=== PATIENT | male | born 1955 | race Caucasian/White ===

== ENCOUNTER → 2016-11-09 | Outpatient (REF) | payer OTHER ==
[~2016-11-09] MED LIST: CELE10TA PO; CITA20TA2 PO; LANS15CA PO; LEVO500T PO; PREV15CA PO; TYLE325T5 PO; VENTAER IN; ZOFR4TAB3 PO
[2016-11-09 13:08] LABS: ALBUMIN/GLOBULIN RATIO 1.33 (1.00-1.93); ALKALINE PHOSPHATASE 97 U/L (45-117); ALT/SGPT 61 U/L (12-78); ANION GAP 4 MEQ/L (8-16); AST/SGOT 30 U/L (15-37); BILIRUBIN,TOTAL 0.6 MG/DL (0.2-1.0); BLOOD UREA NITROGEN 22 MG/DL (7-18); CARBON DIOXIDE LEVEL 33 MEQ/L (21-32); CHLORIDE LEVEL 103 MEQ/L (98-107); CHOLESTEROL LEVEL 237 MG/DL (<200); CREATININE FOR GFR 1.07 MG/DL (0.70-1.30); GLOMERULAR FILTRATION RATE > 60.0 (>49); GLUCOSE, FASTING 95 MG/DL (80-110); POTASSIUM SERUM 4.8 MEQ/L (3.5-5.1); SODIUM LEVEL 140 MEQ/L (136-145); TRIGLYCERIDES LEVEL 223 MG/DL (<150)
[2016-11-09 13:19] LABS: MEAN CORPUSCULAR HEMOGLOBIN 30.3 pg (27.0-33.0); MEAN CORPUSCULAR HGB CONC 33.2 g/dl (32.0-36.5); MEAN CORPUSCULAR VOLUME 91.1 fl (80.0-96.0); RED CELL DISTRIBUTION WIDTH 12.6 % (11.5-14.5); WHITE BLOOD COUNT 4.6 K/mm3 (4.0-10.0)
== END ==
LOC: M LABDRAW1 11:37
PROVIDERS: ATTEND Family Medicine
DX: Z00.00 Encounter for general adult medical examination without abnormal findings (principal); Z12.5 Encounter for screening for malignant neoplasm of prostate

== ENCOUNTER → 2017-02-26 | Outpatient (REF) | payer OTHER ==
[2017-02-26 12:22] LABS: ALBUMIN 3.9 GM/DL (3.2-5.2); ALKALINE PHOSPHATASE 114 U/L (45-117); ALT/SGPT 45 U/L (12-78); ANION GAP 6 MEQ/L (8-16); AST/SGOT 25 U/L (15-37); BILIRUBIN,TOTAL 0.6 MG/DL (0.2-1.0); BLOOD UREA NITROGEN 18 MG/DL (7-18); CALCIUM LEVEL 9.1 MG/DL (8.8-10.2); CARBON DIOXIDE LEVEL 30 MEQ/L (21-32); CHLORIDE LEVEL 106 MEQ/L (98-107); CHOLESTEROL LEVEL 132 MG/DL (<200); CREATININE FOR GFR 1.08 MG/DL (0.70-1.30); GLOMERULAR FILTRATION RATE > 60.0 (>49); GLUCOSE, FASTING 105 MG/DL (80-110); POTASSIUM SERUM 4.4 MEQ/L (3.5-5.1); SODIUM LEVEL 142 MEQ/L (136-145); TOTAL PROTEIN 6.9 GM/DL (6.4-8.2); TRIGLYCERIDES LEVEL 149 MG/DL (<150)
== END ==
LOC: M LABDRAW1 11:37
PROVIDERS: ATTEND Family Medicine
DX: E78.5 Hyperlipidemia, unspecified (principal)

== ENCOUNTER → 2017-12-10 | Outpatient (REF) | payer OTHER ==
[2017-12-10 12:36] LABS: BASO % 0.4 % (0.0-1.0); EOS # 0.1 10^3/uL (0.0-0.50); EOS % 1.2 % (0.0-3.0); HEMOGLOBIN 15.2 g/dl (13.5-17.5); IMMATURE GRANULOCYTE % 0.4 % (0-3.0); LYMPH # 1.5 10^3/uL (1.5-4.5); LYMPH % 29.2 % (24.0-44.0); MEAN CORPUSCULAR HEMOGLOBIN 30.6 pg (27.0-33.0); MEAN CORPUSCULAR HGB CONC 33.8 g/dl (32.0-36.5); MEAN CORPUSCULAR VOLUME 90.5 fl (80.0-96.0); MONO # 0.5 10^3/uL (0.0-0.8); NEUTROPHILS % 59.8 % (36.0-66.0); PLATELET COUNT, AUTOMATED 192 10^3/uL (150-450); RED BLOOD COUNT 4.97 10^6/uL (4.30-6.10); RED CELL DISTRIBUTION WIDTH 12.7 % (11.5-14.5)
[2017-12-10 13:16] LABS: ALBUMIN/GLOBULIN RATIO 1.29 (1.00-1.93); ALKALINE PHOSPHATASE 107 U/L (45-117); ALT/SGPT 44 U/L (12-78); ANION GAP 5 MEQ/L (8-16); AST/SGOT 23 U/L (7-37); BILIRUBIN,TOTAL 0.5 MG/DL (0.2-1.0); BLOOD UREA NITROGEN 20 MG/DL (7-18); CALCIUM LEVEL 8.8 MG/DL (8.8-10.2); CARBON DIOXIDE LEVEL 30 MEQ/L (21-32); CHLORIDE LEVEL 105 MEQ/L (98-107); CHOLESTEROL LEVEL 149 MG/DL (<200); CREATININE FOR GFR 1.03 MG/DL (0.70-1.30); GLOMERULAR FILTRATION RATE > 60.0 (>49); GLUCOSE, FASTING 87 MG/DL (70-100); HDL CHOLESTEROL 47 MG/DL (>40); LDL CHOLESTEROL 81.8 MG/DL (<100); NON-HDL-C 102 MG/DL; POTASSIUM SERUM 4.7 MEQ/L (3.5-5.1); PSA SCREENING 1.37 NG/ML (< 4.0); SODIUM LEVEL 140 MEQ/L (136-145); TOTAL PROTEIN 7.1 GM/DL (6.4-8.2); TRIGLYCERIDES LEVEL 101 MG/DL (<150)
== END ==
LOC: M LABDRAW1 10:55
DX: Z12.5 Encounter for screening for malignant neoplasm of prostate (principal); Z00.00 Encounter for general adult medical examination without abnormal findings

== ENCOUNTER → 2018-10-12 | Outpatient (CLI) | payer MEDICARE, OTHER ==
[~2018-10-12] MED LIST changes: +ONDA-228 PO; -ZOFR4TAB3 PO
[2018-10-12 14:19] LABS: BASO % 0.3 % (0.0-1.0); EOS % 0.3 % (0.0-3.0); HEMATOCRIT 46.5 % (42.0-52.0); HEMOGLOBIN 15.6 g/dl (13.5-17.5); LYMPH # 1.4 10^3/uL (1.5-4.5); LYMPH % 21.3 % (24.0-44.0); MEAN CORPUSCULAR HEMOGLOBIN 30.4 pg (27.0-33.0); MEAN CORPUSCULAR HGB CONC 33.5 g/dl (32.0-36.5); MEAN CORPUSCULAR VOLUME 90.5 fl (80.0-96.0); MONO # 0.6 10^3/uL (0.0-0.8); MONO % 9.5 % (0.0-5.0); NEUTROPHILS # 4.3 10^3/uL (1.8-7.7); NEUTROPHILS % 68.4 % (36.0-66.0); PLATELET COUNT, AUTOMATED 190 10^3/uL (150-450); RED BLOOD COUNT 5.14 10^6/uL (4.30-6.10); WHITE BLOOD COUNT 6.3 10^3/uL (4.0-10.0)
[2018-10-12 14:54] LABS: ALBUMIN 4.1 GM/DL (3.2-5.2); ALT/SGPT 35 U/L (12-78); BILIRUBIN,TOTAL 0.5 MG/DL (0.2-1.0); BLOOD UREA NITROGEN 16 MG/DL (7-18); CALCIUM LEVEL 8.7 MG/DL (8.8-10.2); CARBON DIOXIDE LEVEL 28 MEQ/L (21-32); CHLORIDE LEVEL 103 MEQ/L (98-107); CREATININE FOR GFR 1.18 MG/DL (0.70-1.30); GLOMERULAR FILTRATION RATE > 60.0 (>49); GLUCOSE, FASTING 101 MG/DL (70-100); POTASSIUM SERUM 4.3 MEQ/L (3.5-5.1); SODIUM LEVEL 139 MEQ/L (136-145); TOTAL PROTEIN 7.4 GM/DL (6.4-8.2)
[2018-10-14 10:59] LABS: TOTAL 25(OH) VITAMIN D 28.4 NG/ML (30.0-100.0)
== END ==
LOC: M LAB 13:25
PROVIDERS: ATTEND Physician Assistant Medical
DX: R53.83 Other fatigue (principal); I10 Essential (primary) hypertension; B34.9 Viral infection, unspecified

== ENCOUNTER → 2018-11-08 | Outpatient (REF) | payer MEDICARE, OTHER ==
[~2018-11-08] MED LIST changes: +ATOR1TAB21 PO; +CITA10TA5 PO; +LANS15CA23 PO
[2018-11-08 12:03] LABS: BASO % 0.2 % (0.0-1.0); EOS # 0.1 10^3/uL (0.0-0.50); EOS % 0.9 % (0.0-3.0); HEMATOCRIT 46.3 % (42.0-52.0); HEMOGLOBIN 15.5 g/dl (13.5-17.5); LYMPH # 1.4 10^3/uL (1.5-4.5); LYMPH % 25.4 % (24.0-44.0); MEAN CORPUSCULAR HEMOGLOBIN 30.5 pg (27.0-33.0); MEAN CORPUSCULAR HGB CONC 33.5 g/dl (32.0-36.5); MONO # 0.6 10^3/uL (0.0-0.8); MONO % 10.1 % (0.0-5.0); NEUTROPHILS # 3.4 10^3/uL (1.8-7.7); PLATELET COUNT, AUTOMATED 186 10^3/uL (150-450); RED BLOOD COUNT 5.09 10^6/uL (4.30-6.10); WHITE BLOOD COUNT 5.4 10^3/uL (4.0-10.0)
[2018-11-08 12:15] LABS: ALBUMIN 4.1 GM/DL (3.2-5.2); ALT/SGPT 41 U/L (12-78); BILIRUBIN,TOTAL 0.6 MG/DL (0.2-1.0); BLOOD UREA NITROGEN 20 MG/DL (7-18); CALCIUM LEVEL 8.7 MG/DL (8.8-10.2); CARBON DIOXIDE LEVEL 31 MEQ/L (21-32); CHLORIDE LEVEL 105 MEQ/L (98-107); CHOLESTEROL LEVEL 144 MG/DL (<200); CREATININE FOR GFR 1.12 MG/DL (0.70-1.30); GLOMERULAR FILTRATION RATE > 60.0 (>49); GLUCOSE, FASTING 97 MG/DL (70-100); HDL CHOLESTEROL 45 MG/DL (>40); LDL CHOLESTEROL 63 MG/DL (<100); NON-HDL-C 99 MG/DL; POTASSIUM SERUM 5.1 MEQ/L (3.5-5.1); PROSTATIC SPECIFIC AG MONITOR 1.33 NG/ML (< 4.00); SODIUM LEVEL 142 MEQ/L (136-145); TOTAL PROTEIN 7.4 GM/DL (6.4-8.2); TRIGLYCERIDES LEVEL 181 MG/DL (<150)
== END ==
LOC: M LABDRAW1 08:58
PROVIDERS: ATTEND Family Medicine
DX: Z00.00 Encounter for general adult medical examination without abnormal findings (principal); Z12.5 Encounter for screening for malignant neoplasm of prostate; Z13.818 Encounter for screening for other digestive system disorders; K21.9 Gastro-esophageal reflux disease without esophagitis; Z79.899 Other long term (current) drug therapy

== ENCOUNTER 2019-01-08 11:02 | Day surgery (SDC) | payer OTHER, MEDICARE ==
[~2019-01-08] VITALS: Ht 162.6 cm; Wt 64.4 kg
[~2019-01-08 11:02] MED LIST changes: +NS 1,000 ML IV ONE
[2019-01-08] MEDS ORDERED: LIDOCAINE 2% INJ 100 MG/5 ML SDV (FOR ANES.) As Ordered ONE ×2 (11:37→13:08)
[2019-01-08] MEDS ORDERED: PROPOFOL 200 MG/20 ML VIAL As Ordered ONE (13:08)
--- NOTE | 2019-01-08 13:11 | ROOR ---
Patient Name: Kelton Chisholm Procedure Date: 01/08/2019 12:47 PM Date of : 1955 Age: 63 Room: [facility] Gender: Male Note Status: Finalized Procedure: Total Colonoscopy to Cecum + Biopsy Polypectomy Indications: Screening for colorectal malignant neoplasm Providers: Constantin Duque MD Referring MD: Ramon Meza MD Requesting Provider: Medicines: Monitored Anesthesia Care Complications: No immediate complications. Procedure: Pre-Anesthesia Assessment: - The heart rate, respiratory rate, oxygen saturations, blood pressure, adequacy of pulmonary ventilation, and response to care were monitored throughout the procedure. The Colonoscope was introduced through the anus and advanced to the cecum, identified by appendiceal orifice and ileocecal valve. The colonoscopy was performed without difficulty. The patient tolerated the procedure well. The quality of the bowel preparation was good. Findings: The perianal and digital rectal examinations were normal. Non-bleeding internal hemorrhoids were found during retroflexion. The hemorrhoids were small and Grade I (internal hemorrhoids that do not prolapse). Scattered small-mouthed diverticula were found in the recto-sigmoid colon. A small polyp was found at 60 cm proximal to the anus. The polyp was sessile. The polyp was removed with a jumbo cold forceps. Resection and retrieval were complete. The exam was otherwise without abnormality on direct and retroflexion views. Impression: - Non-bleeding internal hemorrhoids. - Diverticulosis in the recto-sigmoid colon. - One small polyp at 60 cm proximal to the anus, removed with a jumbo cold forceps. Resected and retrieved. - The examination was otherwise normal on direct and retroflexion views. - The exam was otherwise normal to the cecum. Recommendation: - Patient has a contact number available for emergencies. The signs and symptoms of potential delayed complications were discussed with the patient. Return to normal activities tomorrow. Written discharge instructions were provided to the patient. - High fiber diet. - Discharge patient to home. - Continue present medications. - Await pathology results. - Telephone GI clinic for pathology results in 1 week. - Repeat colonoscopy in 10 years for surveillance based on pathology results. - Return to referring physician. - Check Portal Online for Path Results.([email or web address]) - The findings and recommendations were discussed with the patient's family. Constantin Duque MD Constantin Duque MD 01/08/2019 1:10:54 PM Electronically signed by Constantin Duque MD Number of Addenda: 0 Note Initiated On: 01/08/2019 12:47 PM Estimated Blood Loss: Estimated blood loss: none.
[2019-01-08 13:30] VITALS: BP 156/77
== END 2019-01-08 13:42 | disposition home or self-care (01) ==
LOC: M OPP 11:02
PROVIDERS: ATTEND Internal Medicine Gastroenterology
DX: D12.6 Benign neoplasm of colon, unspecified (principal); K64.0 First degree hemorrhoids; K57.30 Diverticulosis of large intestine without perforation or abscess without bleeding; Z12.11 Encounter for screening for malignant neoplasm of colon

== ENCOUNTER → 2019-03-28 | Outpatient (CLI) | payer MEDICARE, OTHER ==
[~2019-03-28] MED LIST changes: -NS 1,000 ML IV ONE
--- NOTE | 2019-03-28 09:46 | REP ---
MRI LEFT SHOULDER WITHOUT CONTRAST: HISTORY: Pain in the left shoulder. TECHNIQUE: Axial, oblique coronal, and oblique sagittal imaging planes are acquired. T1- and T2-weighted scans were obtained with and without fat saturation. MRI FINDINGS: The glenohumeral and acromioclavicular joints are normally aligned. There is subcortical cyst formation in the superolateral humeral head both medially and laterally. This is a finding which has been correlated with impingement. There is subacromial subdeltoid bursal effusion of moderate size. No significant glenohumeral effusion is seen. The AC joint is normally aligned. There is hypertrophy and subcortical cyst formation at the AC joint consistent with osteoarthritis. There is also some inferolateral spurring of the acromion process. There is advanced tendonitis tendinosis change diffusely in the supraspinatus tendon which is thickened and shows increased signal intensity. A small focus of distal tendon T2 signal intensity is seen at its insertion consistent with partial thickness tear. No labral disruption is appreciated. There is mild chondromalacia. The infraspinatus, subscapularis and biceps tendons appear to be intact. IMPRESSION: Advanced tendonitis tendinosis change in the supraspinatus tendon. AC joint osteoarthritis. Subacromial subdeltoid bursal effusion. Acromion process spurring. 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 Electronically Signed by Jerry Horne MD 03/28/2019 09:46 A
== END ==
LOC: M RAD 06:23
PROVIDERS: ATTEND Orthopaedic Surgery Sports Medicine
DX: M25.512 Pain in left shoulder (principal)

== ENCOUNTER → 2019-06-09 | Outpatient (CLI) | payer MEDICARE, OTHER ==
[~2019-06-09] MED LIST changes: +CITA20TA6 PO
[2019-06-09 10:05] LABS: HEMATOCRIT 45.7 % (42.0-52.0); HEMOGLOBIN 15.2 g/dl (13.5-17.5); MEAN CORPUSCULAR HEMOGLOBIN 31.1 pg (27.0-33.0); MEAN CORPUSCULAR HGB CONC 33.3 g/dl (32.0-36.5); MEAN CORPUSCULAR VOLUME 93.5 fl (80.0-96.0); PLATELET COUNT, AUTOMATED 185 10^3/uL (150-450); RED BLOOD COUNT 4.89 10^6/uL (4.30-6.10); WHITE BLOOD COUNT 4.9 10^3/uL (4.0-10.0)
[2019-06-09 10:17] LABS: INR 0.96; PROTHROMBIN TIME 12.5 SECONDS (11.8-14.0)
[2019-06-09 10:24] LABS: POTASSIUM SERUM 4.6 MEQ/L (3.5-5.1)
== END ==
LOC: M LAB 08:48
PROVIDERS: ATTEND Orthopaedic Surgery Sports Medicine
DX: Z01.818 Encounter for other preprocedural examination (principal); M75.102 Unspecified rotator cuff tear or rupture of left shoulder, not specified as traumatic; R12 Heartburn; F41.9 Anxiety disorder, unspecified; F32.9 Major depressive disorder, single episode, unspecified

== ENCOUNTER → 2019-06-09 | Outpatient (CLI) | payer MEDICARE, OTHER ==
--- NOTE | 2019-06-09 15:06 | ECGEPIP ---
[facility] Test Date: 2019-06-09 Pat Name: DALILA BORDEN Department: Room: - Gender: Male Laboratory Tech: DAMION : 1955 Requested By: VIPUL Galeas Order Number: [id number] Reading MD: Stevie Bowling Measurements Intervals [place] Rate: 60 P: 52 IA: 156 QRS: 44 QRSD: 89 T: 44 QT: 404 QTc: 406 Interpretive Statements SINUS RHYTHM Normal ECG No prior ECG available for comparison at the time of interpretation. Electronically Signed on 06-09-2019 15:06:26 EDT by Stevie Bowling
== END ==
LOC: M EKG 11:53
PROVIDERS: ATTEND Anesthesiology
DX: Z01.818 Encounter for other preprocedural examination (principal); R12 Heartburn; F41.9 Anxiety disorder, unspecified; F32.9 Major depressive disorder, single episode, unspecified

== ENCOUNTER 2019-06-12 06:34 | Day surgery (SDC) | payer MEDICARE, OTHER ==
[~2019-06-12] VITALS: Ht 162.6 cm; Wt 62.6 kg
[~2019-06-12 06:34] MED LIST changes: +LIDOCAINE 1% MDV 20ML VIAL SQ PRN; +LR 1,000 ML IV ONE; +ceFAZolin SOD 2 GM in IV 1 EA IV ONE
[2019-06-12] MEDS ORDERED: dexameTHASONE 10 MG/1 ML VIAL PRES.FREE (J1100) ONE (06:35)
[2019-06-12] MEDS ORDERED: ROPIvacaine 0.5% 30 ML INJECTION (J2795 PER 1MG) ONE (06:35)
[2019-06-12] MEDS ORDERED: LIDOCAINE 1% MDV 20ML VIAL ONE (06:35)
[2019-06-12] MEDS ORDERED: LIDOCAINE 1% MDV 20ML VIAL As Ordered ONE (07:53)
[2019-06-12] MEDS ORDERED: EPINEPHrine INJ 1 MG/ML 1ML AMP As Ordered ONE (07:53)
[2019-06-12] MEDS ORDERED: PROPOFOL 200 MG/20 ML VIAL As Ordered ONE ×2 (08:04→08:05)
[2019-06-12] MEDS ORDERED: LIDOCAINE 2% INJ 100 MG/5 ML SDV (FOR ANES.) As Ordered ONE (08:04)
[2019-06-12] MEDS ORDERED: ROCURONIUM BROMIDE 50 MG/5 ML VIAL As Ordered ONE (08:04)
[2019-06-12] MEDS ORDERED: dexameTHASONE 4 MG/ML 1ML VIAL (J1100) As Ordered ONE (08:05)
[2019-06-12] MEDS ORDERED: SUGAMMADEX SODIUM 500 MG/5 ML VIAL (BRIDION) As Ordered ONE (08:05)
[2019-06-12] MEDS ORDERED: MIDAZOLAM INJ 2 MG/2 ML VIAL (J2250) As Ordered ONE ×2 (08:05→08:10)
[2019-06-12] MEDS ORDERED: ONDANSETRON 4MG/2ML VIAL (J2405) As Ordered ONE (08:05)
[2019-06-12] MEDS ORDERED: fentaNYL 100 MCG/2 ML INJECTION (J3010) As Ordered ONE ×2 (08:05→08:10)
[2019-06-12] MEDS ORDERED: ePHEDrine SULFATE 25 MG/5 ML(5MG/ML) SYRINGE As Ordered ONE (09:05)
[2019-06-12] MEDS ORDERED: fentaNYL 100 MCG/2 ML INJECTION (J3010) IV ONE (09:15)
[2019-06-12] MEDS ORDERED: MIDAZOLAM INJ 2 MG/2 ML VIAL (J2250) IV ONE (09:15)
[2019-06-12] MEDS ORDERED: KETOROLAC 60 MG/2 ML VIAL (J1885) As Ordered ONE (09:44)
--- NOTE | 2019-06-12 10:15 | RO ---
DATE OF PROCEDURE: 06/12/2019 PREOPERATIVE DIAGNOSIS: Left shoulder impingement. POSTOPERATIVE DIAGNOSIS: Left shoulder impingement. PLANNED PROCEDURE: Left shoulder arthroscopy, subacromial decompression debridement, plus/minus rotator cuff repair. PROCEDURE PERFORMED: Left shoulder arthroscopy, subacromial decompression and debridement. SURGEON: Dr. Gaines EMBEDDED SYSTEMS ENGINEER: Dr. Maldonado TYPE OF ANESTHETIC: General anesthetic plus preoperative block. OPERATIVE PREAMBLE: This 63-year-old man his left shoulder pain refractory to non-surgical management. MRI demonstrated bursitis, possible anterior border supraspinatus tendon tear. We talked about pros, cons, risks, benefits going ahead with surgery in the office as well as preoperative holding. He wished to go ahead and I marked the left upper extremity. OPERATIVE REPORT: Patient brought to operating theater. He was placed supine on the beach chair positioner. All bony prominences were padded including using a leg gan and safety strap. Two grams IV Ancef was administered prior to insert the case. Spider arm positioner was used the patient's left side. A face mask was used and eyes were protected. General anesthesia was induced. Limb was prepped and draped the usual sterile fashion. Prep solution was allowed thoroughly dry prior to draping. Preoperative time-out was performed to confirm the site and the patient and the surgery. The patient was sat up 40 at approximately 45 degrees angle. Scope was introduced to the glenohumeral joint using standard percutaneous portal posterior approach. Glenohumeral joint was thoroughly examined. There is some moderate synovitis in the undersurface of the supraspinatus tendon but no obvious undersurface tears. Biceps appeated stable and in the groove with no evidence of synovitis or fraying. Labrum was stable. However, there was a moderate amount of superficial fraying to the labrum circumferentially that was debrided. Anterior portal was placed just posterior and superior to the biceps through the rotator interval and an in to out percutaneous technique using a spinal needle localization. Shaver and ablator was used intra-articularly. Cartilage on the humerus and glenoid only showed grade 1 soft. Rotator interval was slightly debrided. Upper border subscapularis tendon appeared normal in attachment with good excursion and normal lever push. Arthroscopy pictures were taken throughout. Scope was withdrawn from the intra-articular portion shoulder and placed into the subacromial space. Lateral portal was then created using again spinal needle localization. Combination of shaver and ablator was then used to removed from moderate to large amount of inflamed subacromial bursa. Rotator cuff was thoroughly inspected from the superior surface. There is no obvious tears upon probing and the scope was positioned from posteriorly as well as from laterally. Full and complete bursectomy was performed as well as CA ligament taken down. Buried instrument was used to resect with approximately 5-6 mm from the leading anterolateral edge of the inferior portion of the acromion. There is moderate sized spur. This was taken down to flat appearance on both lateral and posterior viewing portals. Any bone dust was then thoroughly debrided from inside the shoulder. Scope was withdrawn. Portal sites thoroughly washed and closed with interrupted 3-0 Monocryl in subcutaneous fashion. Steri-Strips were applied. Adaptic 4 x 8 gauze, ABD dressing was then placed with cloth tape. The patients arm was placed into a sling. The patient woke up for their general anesthetic, transferred off the operating table taken postanesthetic care unit stable condition. All sponge, needle, syringe counts were correct. No complications. Estimated blood loss 30 mL. PLAN: The patient will be discharged home according to day surgery criteria. They can wean out of the sling over the next 1-2 weeks. I have encouraged him to do pendulum exercises as well as hand, wrist and elbow exercises. The can move the shoulder around and start physical therapy. Follow up in the office in 2 weeks time.
[2019-06-12] MEDS ORDERED: ONDANSETRON 4 MG TAB (S0181) PO PRN (10:30)
[2019-06-12] MEDS ORDERED: LR 1,000 ML IV SCH ×2 (10:30)
[2019-06-12] MEDS ORDERED: HYDROMORPHONE HCL 0.5 MG/ 0.5 ML SYRINGE (J1170 PER 1) IV PRN (10:30)
[2019-06-12] MEDS ORDERED: ONDANSETRON 4MG/2ML VIAL (J2405) IV PRN ×2 (10:30)
[2019-06-12] MEDS ORDERED: fentaNYL 100 MCG/2 ML INJECTION (J3010) IV PRN (10:30)
[2019-06-12] MEDS ORDERED: PERCOCET 5MG/325MG TAB PO PRN ×2 (10:30)
[2019-06-12] MEDS ORDERED: ACETAMINOPHEN TAB 650MG DOSE (2X325MG) PO PRN (10:30)
[2019-06-12] MEDS ORDERED: MORPHINE 4 MG/ML 1ML VIAL/SYRINGE (J2270) IV PRN (10:30)
[2019-06-12 11:25] VITALS: BP 153/75
== END 2019-06-12 11:40 | disposition home or self-care (01) ==
LOC: M SDC 06:34
PROVIDERS: ATTEND Orthopaedic Surgery Sports Medicine
DX: M25.812 Other specified joint disorders, left shoulder (principal); E78.00 Pure hypercholesterolemia, unspecified; K21.9 Gastro-esophageal reflux disease without esophagitis; F41.9 Anxiety disorder, unspecified; F32.9 Major depressive disorder, single episode, unspecified; R51 Headache; Z88.0 Allergy status to penicillin; Z79.899 Other long term (current) drug therapy
CPT/HCPCS: 29823; 29826; 64415; J0690; J1100; J1885; J2250; J2405; J2795; J3010

== ENCOUNTER → 2019-09-20 | Outpatient (CLI) | payer MEDICARE, OTHER ==
[~2019-09-20] MED LIST changes: -LIDOCAINE 1% MDV 20ML VIAL SQ PRN; -LR 1,000 ML IV ONE; -ceFAZolin SOD 2 GM in IV 1 EA IV ONE
--- NOTE | 2019-09-21 09:57 | REPVR ---
PROCEDURE INFORMATION: Exam: MR Lumbar Spine Without Contrast. Exam date and time: 09/20/2019 9:53 AM Age: 64 years old Clinical indication: Low back pain and other: PT states pinched nerve 1mo ago. ; Additional info: Intervertebral disc degeneration TECHNIQUE: Imaging protocol: Multiplanar magnetic resonance images of the lumbar spine without intravenous contrast. COMPARISON: No relevant prior studies available. FINDINGS: Vertebrae: The lumbar vertebral bodies are normal in height , signal intensity and alignment.No acute fracture or dislocation is seen. Small Schmorl's node is seen along the superior endplate of L1 vertebral body. Small marginal anterior osteophytes with mild degenerative endplate changes are noted from L2-S1 levels. Marrow: There is a normal proportion of hematopoietic bone marrow and fat for this patient's age.There is no evidence of abnormal bone marrow signal intensity to suggest contusion or infection. Spinal epidural space: There is no evidence of epidural hemorrhage. Spinal cord: The conus medullaris is normal. L1-L2: There is no significant degenerative disc herniation.The spinal canal and neural foramina are patent and without significant stenosis.There is a mild diffuse posterior bulge causing mild effacement of the thecal sac.There is no significant spinal canal or foraminal stenosis. L2-L3: There is a mild diffuse posterior bulge causing mild effacement of the thecal sac.There is no significant spinal canal or foraminal stenosis. L3-L4: There is a mild diffuse posterior bulge causing mild effacement of the thecal sac.There is no significant spinal canal or foraminal stenosis. L4-L5: Small diffuse posterior herniation, asymmetric towards the right. Mild left and moderate right facet arthropathy.There is thickening of the ligamentum flavum.There is no evidence of spinal canal narrowing.There is mild left foraminal stenosis.There is moderate right lateral recess and foraminal stenosis with compression and posterior displacement of the right L5 nerve root. L5-S1: Small diffuse posterior herniation.The facet joints demonstrate marked degenerative narrowing and sclerosis.There is abnormal soft tissue density in the spinal canal at L5-S1 level on the right side measuring approximately 1.8 x 1.4 x 1.0 cm in dimensions which appears hypointense on both T1 and T2 weighted images and is seen causing severe secondary spinal canal stenosis with compression and displacement of the thecal sac posteriorly and to the left. This may represent an extruded disc fragment versus intraspinal neoplasm such as meningioma. A contrast-enhanced MRI of the lumbar spine with high-resolution imaging at L5-S1 level is recommended for further evaluation. There is compression on the thecal sac and crowding of the cauda equina nerve roots at this level. There is severe right lateral recess and foraminal stenosis with compression of the exiting right L5 nerve root. Soft tissues: The prevertebral soft tissues appear normal. IMPRESSION: MRI of the lumbar spine reveals multilevel degenerative spondylitic changes and degenerative disc disease as described above. There is abnormal soft tissue density in the spinal canal at L5-S1 level on the right side measuring approximately 1.8 x 1.4 x 1.0 cm in dimensions which appears hypointense on both T1 and T2 weighted images and is seen causing severe secondary spinal canal stenosis with compression and displacement of the thecal sac posteriorly and to the left. This may represent an extruded disc fragment versus intraspinal neoplasm such as meningioma. A contrast-enhanced MRI of the lumbar spine with high-resolution imaging at L5-S1 level is recommended for further evaluation. There is compression on the thecal sac and crowding of the cauda equina nerve roots at this level. There is severe right lateral recess and foraminal stenosis with compression of the exiting right L5 nerve root. Electronically signed by: Saurabh Motta On 09/21/2019 09:57:39 AM
== END ==
LOC: M RAD 09:01
PROVIDERS: ATTEND Physician Assistant
DX: M51.36 Other intervertebral disc degeneration, lumbar region (principal)

== ENCOUNTER → 2019-10-07 | Outpatient (CLI) | payer MEDICARE, OTHER ==
[~2019-10-07] MED LIST changes: +PERC5TAB12 PO
== END ==
LOC: M LAB 08:11
PROVIDERS: ATTEND Orthopaedic Surgery
DX: Z01.818 Encounter for other preprocedural examination (principal)

== ENCOUNTER 2019-10-08 13:32 | Day surgery (SDC) | payer MEDICARE, OTHER ==
[~2019-10-08] VITALS: Ht 162.6 cm; Wt 64.0 kg
[~2019-10-08 13:32] MED LIST changes: +CelecoXIB (CeleBREX) 100 MG CAP PO ONE; +GABAPENTIN 300 MG CAP PO ONE; +LIDOCAINE 1% MDV 20ML VIAL SQ PRN; +LR 1,000 ML IV ONE; -PERC5TAB12 PO; +PERCOCET 5MG/325MG TAB PO ONE; +ceFAZolin SOD 1 GM in D5W MINI-BAG PLUS 50 ML IV ONE
[2019-10-08] MEDS ORDERED: THROMBIN SOLN 20,000 UNITS KIT As Ordered ONE (14:59)
[2019-10-08] MEDS ORDERED: BUPIVACAINE/EPIN 0.25% 30 ML VIAL As Ordered ONE (14:59)
[2019-10-08] MEDS ORDERED: BACITRACIN PWD 50,000 UNITS VIAL As Ordered ONE (14:59)
[2019-10-08] MEDS ORDERED: ROCURONIUM BROMIDE 50 MG/5 ML VIAL As Ordered ONE ×2 (16:24→18:07)
[2019-10-08] MEDS ORDERED: ONDANSETRON 4MG/2ML VIAL (J2405) As Ordered ONE ×3 (16:24→19:47)
[2019-10-08] MEDS ORDERED: SUGAMMADEX SODIUM 500 MG/5 ML VIAL (BRIDION) As Ordered ONE (16:24)
[2019-10-08] MEDS ORDERED: dexameTHASONE 4 MG/ML 1ML VIAL (J1100) As Ordered ONE ×2 (16:24→16:31)
[2019-10-08] MEDS ORDERED: MIDAZOLAM INJ 2 MG/2 ML VIAL (J2250) As Ordered ONE (16:24)
[2019-10-08] MEDS ORDERED: propofoL 200 MG/20 ML VIAL As Ordered ONE (16:24)
[2019-10-08] MEDS ORDERED: METOCLOPRAMIDE INJ 10MG/2ML VIAL (J2765) As Ordered ONE (16:24)
[2019-10-08] MEDS ORDERED: LIDOCAINE 2% INJ 100 MG/5 ML SDV (FOR ANES.) As Ordered ONE (16:24)
[2019-10-08] MEDS ORDERED: fentaNYL 250 MCG/5 ML INJECTION (J3010) As Ordered ONE (16:24)
[2019-10-08] MEDS ORDERED: LACRILUBE (AKWA TEARS) OPHTH OINT 3.5 GM As Ordered ONE (17:17)
[2019-10-08] MEDS ORDERED: ePHEDrine SULFATE 25 MG/5 ML(5MG/ML) SYRINGE As Ordered ONE (18:03)
--- NOTE | 2019-10-08 18:35 | REP ---
I partial lumbar spine series: Single view. History: Intra exam. Findings: A single cross-table lateral portably obtained radiograph of the lumbar spine is presented time stamped 06:06 p.m. This demonstrates an intraoperative probe at the dorsal aspect of the spinal canal at the level of the L5-S1 disc. There is multilevel degenerative disc disease. Electronically Signed by Jerry Horne MD 10/08/2019 06:26 P
[2019-10-08] MEDS ORDERED: GLYCOPYRROLATE INJ 0.2 MG/ML 2 ML VIAL As Ordered ONE (18:42)
[2019-10-08] MEDS ORDERED: NEOSTIGMINE 10 MG/10 ML VIAL (J2710) As Ordered ONE (18:42)
[2019-10-08] MEDS ORDERED: fentaNYL 100 MCG/2 ML INJECTION (J3010) As Ordered ONE (19:47)
[2019-10-08] MEDS ORDERED: HYDROMORPHONE HCL 0.5 MG/ 0.5 ML SYRINGE (J1170 PER 1) IV PRN ×2 (20:15)
[2019-10-08] MEDS ORDERED: fentaNYL 100 MCG/2 ML INJECTION (J3010) IV PRN (20:15)
[2019-10-08] MEDS ORDERED: D5W/LR 1,000 ML IV SCH (20:15)
[2019-10-08] MEDS ORDERED: LR 1,000 ML IV SCH (20:15)
[2019-10-08] MEDS ORDERED: PERCOCET 5MG/325MG TAB PO PRN ×3 (20:15→21:15)
[2019-10-08] MEDS ORDERED: ONDANSETRON 4MG/2ML VIAL (J2405) IV PRN (20:15)
[2019-10-08] MEDS ORDERED: ceFAZolin SOD 1 GM in D5W MINI-BAG PLUS 50 ML IV SCH (20:30)
[2019-10-08] MEDS ORDERED: METAMUCIL (PSYLLIUM) PACKET PO ONE (20:30)
[2019-10-08] MEDS ORDERED: CYCLOBENZAPRINE 10 MG TAB PO PRN (21:00)
[2019-10-08] MEDS ORDERED: PROMETHAZINE INJ 25 MG/ML VIAL (J2550) IV PRN (21:15)
[2019-10-08 21:29] VITALS: BP 120/78
[2019-10-08] MEDS: GABAPENTIN 300 MG CAP PO SCH (21:55)
[2019-10-08 22:00] VITALS: BP 123/78
[2019-10-09] VITALS: BP 124/78
[2019-10-09] MEDS: ceFAZolin SOD 1 GM in D5W MINI-BAG PLUS 50 ML IV SCH ×2 (00:28→05:11)
[2019-10-09 01:00] VITALS: BP 108/68
[2019-10-09 02:00] VITALS: BP 106/67
[2019-10-09 06:00] VITALS: BP 104/65
[2019-10-09] MEDS ORDERED: PERC5TAB12 PO (06:16)
[2019-10-09] MEDS ORDERED: PANTOPRAZOLE 20 MG TAB PO SCH (09:00)
[2019-10-09] MEDS ORDERED: CelecoXIB (CeleBREX) 100 MG CAP PO ONE (09:00)
[2019-10-09] MEDS ORDERED: METAMUCIL (PSYLLIUM) PACKET PO ONE (09:00)
[2019-10-09] MEDS ORDERED: CitaloPRAM (CeleXA) 20 MG TAB PO SCH (09:00)
[2019-10-09] MEDS: GABAPENTIN 300 MG CAP PO SCH (09:30)
--- NOTE | 2019-10-10 10:45 | RO ---
DATE OF PROCEDURE: 10/08/2019 PREOPERATIVE DIAGNOSIS: Severe lumbar spinal stenosis secondary to very large disk extrusion at the L5-S1 level compressing both the cauda equina, as well as the right lateral recess and producing severe right lower extremity radicular complaints. POSTOPERATIVE DIAGNOSIS: Severe lumbar spinal stenosis secondary to very large disk extrusion at the L5-S1 level compressing both the cauda equina, as well as the right lateral recess and producing severe right lower extremity radicular complaints. PROCEDURE: Right L5 unilateral laminectomy with decompression of the central canal, thecal sac, exiting and traversing nerve roots and S1 right unilateral laminectomy for decompression of the traversing nerve root and exposure to allow for safe removal of the very large disk extrusion. SURGEON: Woodrow Baird MD DATA WAREHOUSE CONSULTANT: JOEY Suárez ANESTHESIA: General. ESTIMATED BLOOD LOSS: Less than 40. COMPLICATIONS: No complications. INDICATIONS: Intractable discomfort radiating down primarily the right lower extremity. The patient has had progressively worsening symptoms. The patient has an MRI that reflects a very large disk extrusion producing severe spinal stenosis and a right sided disk extrusion that produces central and right lateral recess spinal stenosis that again is severe. MRI interpreted by initial radiologist as possible neoplasm, reviewed with Dr. Horne, who agreed this has more of the appearance of a disk extrusion. CONSENT: Reviewed in detail with the patient, including a jonnathan discussion of the pathology involved, the procedure proposed, the rationale for the unilateral laminectomy as opposed to a microdiskectomy as the large size of this disk herniation, we need to be able to safely retract, and risks including not limited to pain, failure, infection, bleeding, blood loss, incomplete relief of symptoms, need for additional surgery, nerve injury, paralysis, and/or other problems. The patient agrees to proceed. DESCRIPTION OF PROCEDURE: The patient was identified in the holding area. Site and side verified. Brought to the operating room. Once anesthesia was administered, he was positioned in the prone position on the Sanjay frame. Axillary rolls were utilized, knees were slightly flexed. The Rae was to gravity. The patient did receive perioperative antibiotics. Once I and the chemical dependency attendant were comfortable with the patient's positioning, he was then sterilely prepped and draped in usual fashion for exposure. I stood on the patient's right side. The medical student stood on the patient's left side. Landmarks were palpated. Incision was outlined with a marking pen, infiltrated with 0.25% Marcaine with epinephrine, made with the 10 blade knife, developed down through skin and subcuticular tissues to the posterior lumbar fascia. Posterior lumbar fascia was reflected off of the spinous process of L5 and the dissection continued down the lamina of L5 exposing the L5 posterior lamina. A divot was then drilled in the posterior lamina at 5. A Rose-Karlo was placed the divot and a cross-table lateral was obtained to verify our level. Once this was accomplished, the incision was extended superiorly and the dissection continued further exposing the L5-S1 lamina. Retractors were then placed. The operating microscope was draped. I looked through oculars on the patient's right, medical student looked through oculars on the patient's left. Next, my loupe and headlamp were removed. Next, the operating microscope facilitated safe use the high-speed bur. I utilized the high-speed bur to implement a right unilateral laminectomy of the L5 level, extending medially, undercutting spinous process of L5, extending superiorly through the bare area of L5, protecting the facette complex, approximately 20% of the medial aspect of which was removed, extending inferiorly through the bare area of S1 and undercutting the spinous process of S1. Once this was accomplished, I was able to elevate the ligamentum flavum with curved curettes and remove ligamentum flavum using the #2 and 3 Kerrisons. This exposed the thecal sac, which was significantly elevated, likely due to the disk herniation. Next, lateral recess was also decompressed using #2 Kerrisons. Next, I utilized a Rose-Karlo to further dissect the traversing S1 nerve root, which was severely compressed and flattened. I was able to carefully and slowly sweep the nerve root medially and then was able to create a rupture in the posterior longitudinal ligament and used Godinez pituitaries and in piecemeal fashion removed the large disk herniation that extended into the axilla of S1, under the shoulder of S1 and centrally. After the initial disk material was removed, I continued to probe superior and in the lateral recesses and additional large disk fragments were removed. Next, I did open the annulus with 11 blade, additional disk material was removed using suction, as well as Godinez. Next, bipolar cautery was utilized for hemostasis, as well as thrombin Gelfoam. All thrombin Gelfoam was removed at the conclusion of case. Irrigation was accomplished, including irrigation with concentrated bacitracin. Retractors were removed and posterior lumbar fascia was reapproximated with interrupted stitch. Deep dermis was reapproximated with interrupted stitch. The Pernio dressing was applied to the wound. Next, the patient was then able to be log-rolled to the hospital bed, extubated, moved to recovery room in good condition, moving all four extremities and in fact expressing relief of his leg symptoms in the recovery room. For further details please refer to medical record.
== END 2019-10-09 10:45 | disposition home or self-care (01) ==
LOC: M SDC 13:32 → M MS5PR 21:18 → M SDC 10-09 10:45
PROVIDERS: ATTEND Orthopaedic Surgery
DX: M48.061 Spinal stenosis, lumbar region without neurogenic claudication (principal); K21.9 Gastro-esophageal reflux disease without esophagitis; F41.9 Anxiety disorder, unspecified; F32.9 Major depressive disorder, single episode, unspecified; Z79.899 Other long term (current) drug therapy
CPT/HCPCS: 63030; 72100; 88304; 96361; 96365; 96366; G0378; J0690; J1100; J2250; J2405; J2710; J2765; J3010

== ENCOUNTER → 2019-10-11 | Outpatient (CLI) | payer MEDICARE, OTHER ==
[~2019-10-11] MED LIST changes: -CelecoXIB (CeleBREX) 100 MG CAP PO ONE; -GABAPENTIN 300 MG CAP PO ONE; -LIDOCAINE 1% MDV 20ML VIAL SQ PRN; -LR 1,000 ML IV ONE; +PERC5TAB12 PO; -PERCOCET 5MG/325MG TAB PO ONE; -ceFAZolin SOD 1 GM in D5W MINI-BAG PLUS 50 ML IV ONE
[2019-10-11 11:35] LABS: BASO % 0.4 % (0.0-1.0); EOS # 0.1 10^3/uL (0.0-0.5); HEMATOCRIT 44.4 % (42.0-52.0); HEMOGLOBIN 14.6 g/dl (13.5-17.5); LYMPH # 1.6 10^3/uL (1.5-5.0); LYMPH % 19.9 % (24.0-44.0); MEAN CORPUSCULAR HGB CONC 32.9 g/dl (32.0-36.5); MEAN CORPUSCULAR VOLUME 91.2 fl (80.0-96.0); MONO # 0.8 10^3/uL (0.0-0.8); MONO % 9.7 % (0.0-5.0); NEUTROPHILS # 5.7 10^3/uL (1.5-8.5); NEUTROPHILS % 68.8 % (36.0-66.0); PLATELET COUNT, AUTOMATED 177 10^3/uL (150-450); RED BLOOD COUNT 4.87 10^6/uL (4.30-6.10); WHITE BLOOD COUNT 8.3 10^3/uL (4.0-10.0)
[2019-10-11 12:02] LABS: ERYTHROCYTE SEDIMENTATION RATE 23 mm/hr (0-20)
== END ==
LOC: M LAB 10:22
PROVIDERS: ATTEND Orthopaedic Surgery
DX: Z47.89 Encounter for other orthopedic aftercare (principal); Z79.899 Other long term (current) drug therapy

== ENCOUNTER → 2019-10-16 | Outpatient (REF) | payer MEDICARE, OTHER ==
[2019-10-16 10:52] LABS: BLOOD UREA NITROGEN 16 MG/DL (7-18); CREATININE FOR GFR 1.04 MG/DL (0.70-1.30); GLOMERULAR FILTRATION RATE > 60.0 (>49)
== END ==
LOC: M LABDRAW1 08:44
PROVIDERS: ATTEND Orthopaedic Surgery
DX: M54.5 Low back pain (principal)

== ENCOUNTER 2020-06-21 14:35 | Emergency (ER) | payer MEDICARE, OTHER ==
[~2020-06-21] VITALS: Ht 162.6 cm; Wt 63.6 kg
[2020-06-21 14:36] VITALS: BP 189/84
--- NOTE | 2020-06-21 15:05 | REP ---
INDICATION: PAIN, TRAUMA. COMPARISON: February 03, 2014.. TECHNIQUE: Helical scanning is acquired. 5 mm axial images were reformatted. Coronal MPR images were generated. FINDINGS: Bone window settings demonstrate an intact bony calvarium. There is no evidence of skull fracture or incidental bony calvarial lesion. The visualized paranasal sinuses appear clear. No intraorbital abnormality is seen. On soft tissue window setting images; the lateral, third, and fourth ventricles are normal in size and position. Kebede-white differentiation pattern is normal above and below the tentorium. There are is no evidence of intracranial hemorrhage. No mass, edema, infarction, or midline shift is seen. No extra-axial fluid collection is appreciated. There is minimal generalized volume loss. IMPRESSION: Negative noncontrast head CT. <Electronically signed by Dm Horne > 06/21/20 [id number]
[2020-06-21] MEDS ORDERED: BOOSTRIX/ADACEL VACCINE (DIPHTH/PERTUSS/ACELL/TETANUS) 0.5ML SYR IM ONE (15:30)
== END 2020-06-21 15:56 | disposition home or self-care (01) ==
LOC: M ED 14:35
DX: S07.9XXA Crushing injury of head, part unspecified, initial encounter (principal); Y92.9 Unspecified place or not applicable; Y93.9 Activity, unspecified; Y99.9 Unspecified external cause status; Z79.899 Other long term (current) drug therapy; Z88.1 Allergy status to other antibiotic agents

== ENCOUNTER → 2020-06-22 | Outpatient (CLI) | payer MEDICARE, OTHER ==
[2020-06-22 13:04] LABS: HEMATOCRIT 47.6 % (42.0-52.0); HEMOGLOBIN 15.6 g/dl (13.5-17.5); MEAN CORPUSCULAR HEMOGLOBIN 30.4 pg (27.0-33.0); MEAN CORPUSCULAR HGB CONC 32.8 g/dl (32.0-36.5); MEAN CORPUSCULAR VOLUME 92.8 fl (80.0-96.0); PLATELET COUNT, AUTOMATED 173 10^3/uL (150-450); RED BLOOD COUNT 5.13 10^6/uL (4.30-6.10); WHITE BLOOD COUNT 5.9 10^3/uL (4.0-10.0)
[2020-06-22 13:42] LABS: ALBUMIN 4.1 GM/DL (3.2-5.2); ALT/SGPT 36 U/L (12-78); BLOOD UREA NITROGEN 14 MG/DL (7-18); CALCIUM LEVEL 9.1 MG/DL (8.8-10.2); CARBON DIOXIDE LEVEL 30 MEQ/L (21-32); CHLORIDE LEVEL 104 MEQ/L (98-107); CHOLESTEROL LEVEL 147 MG/DL (<200); CHOLESTEROL RISK RATIO 2.826 (<5); CREATININE FOR GFR 1.12 MG/DL (0.70-1.30); GLOMERULAR FILTRATION RATE > 60.0 (>49); GLUCOSE, FASTING 95 MG/DL (70-100); HDL CHOLESTEROL 52 MG/DL (>40); LDL CHOLESTEROL 69 MG/DL (<100); NON-HDL-C 95 MG/DL; SODIUM LEVEL 140 MEQ/L (136-145); TOTAL PROTEIN 7.2 GM/DL (6.4-8.2); TRIGLYCERIDES LEVEL 131 MG/DL (<150)
[2020-06-22 13:53] LABS: TOTAL 25(OH) VITAMIN D 37.6 NG/ML (30.0-100.0)
== END ==
LOC: M WUC 09:42
PROVIDERS: ATTEND Family Medicine
DX: E55.9 Vitamin D deficiency, unspecified (principal); E78.5 Hyperlipidemia, unspecified; Z12.5 Encounter for screening for malignant neoplasm of prostate

== ENCOUNTER → 2021-06-22 | Outpatient (CLI) | payer MEDICARE, OTHER ==
[2021-06-22 10:40] LABS: HEMATOCRIT 42.6 % (42.0-52.0); HEMOGLOBIN 14.1 g/dl (13.5-17.5); MEAN CORPUSCULAR HEMOGLOBIN 30.4 pg (27.0-33.0); MEAN CORPUSCULAR HGB CONC 33.1 g/dl (32.0-36.5); MEAN CORPUSCULAR VOLUME 91.8 fl (80.0-96.0); PLATELET COUNT, AUTOMATED 171 10^3/uL (150-450); RED BLOOD COUNT 4.64 10^6/uL (4.30-6.10); WHITE BLOOD COUNT 3.9 10^3/uL (4.0-10.0)
[2021-06-22 11:21] LABS: BLOOD UREA NITROGEN 17 MG/DL (7-18); CALCIUM LEVEL 8.9 MG/DL (8.8-10.2); CARBON DIOXIDE LEVEL 31 MEQ/L (21-32); CHLORIDE LEVEL 104 MEQ/L (98-107); CREATININE FOR GFR 1.07 MG/DL (0.70-1.30); GLOMERULAR FILTRATION RATE > 60.0 (>49); GLUCOSE, FASTING 98 MG/DL (70-100); POTASSIUM SERUM 4.6 MEQ/L (3.5-5.1); SODIUM LEVEL 140 MEQ/L (136-145)
[2021-06-22 11:22] LABS: ALBUMIN 3.7 GM/DL (3.2-5.2); ALT/SGPT 34 U/L (12-78); BILIRUBIN,TOTAL 0.5 MG/DL (0.2-1.0); CHOLESTEROL LEVEL 147 MG/DL (<200); HDL CHOLESTEROL 44 MG/DL (>40); LDL CHOLESTEROL 82 MG/DL (<100); NON-HDL-C 103 MG/DL; TOTAL 25(OH) VITAMIN D 37.4 NG/ML (30.0-100.0); TOTAL PROTEIN 7.1 GM/DL (6.4-8.2); TRIGLYCERIDES LEVEL 107 MG/DL (<150)
== END ==
LOC: M WUC 08:41
PROVIDERS: ATTEND Family Medicine
DX: E55.9 Vitamin D deficiency, unspecified (principal); Z12.5 Encounter for screening for malignant neoplasm of prostate; E78.5 Hyperlipidemia, unspecified; Z79.899 Other long term (current) drug therapy
CPT/HCPCS: 36415; 80053; 80061; 82306; 85027; G0103

== ENCOUNTER → 2022-06-30 | Outpatient (CLI) | payer MEDICARE, OTHER ==
[~2022-06-30] MED LIST changes: -CITA10TA5 PO; +CITA10TA7 PO; +LANS-67 PO; -LANS15CA23 PO
[2022-06-30 12:24] LABS: BASO % 0.4 % (0.0-1.0); EOS % 0.7 % (0.0-3.0); HEMATOCRIT 47.4 % (42.0-52.0); HEMOGLOBIN 15.5 g/dl (13.5-17.5); LYMPH # 1.5 10^3/uL (1.5-5.0); LYMPH % 27.9 % (24.0-44.0); MEAN CORPUSCULAR HEMOGLOBIN 30.5 pg (27.0-33.0); MEAN CORPUSCULAR HGB CONC 32.7 g/dl (32.0-36.5); MEAN CORPUSCULAR VOLUME 93.3 fl (80.0-96.0); MONO # 0.5 10^3/uL (0.0-0.8); MONO % 9.5 % (2.0-8.0); NEUTROPHILS # 3.3 10^3/uL (1.5-8.5); NEUTROPHILS % 61.1 % (36.0-66.0); PLATELET COUNT, AUTOMATED 199 10^3/uL (150-450); RED BLOOD COUNT 5.08 10^6/uL (4.30-6.10); WHITE BLOOD COUNT 5.4 10^3/uL (4.0-10.0)
[2022-06-30 12:42] LABS: ALBUMIN 4.4 G/DL (3.2-5.2); ALT/SGPT 31 U/L (7.0-40); BILIRUBIN,TOTAL 0.9 MG/DL (0.3-1.2); BLOOD UREA NITROGEN 19 MG/DL (9-23); CALCIUM LEVEL 9.9 MG/DL (8.3-10.6); CARBON DIOXIDE LEVEL 32 MMOL/L (20-31); CHLORIDE LEVEL 102 MMOL/L (98-107); CHOLESTEROL LEVEL 156 MG/DL (<200); CHOLESTEROL RISK RATIO 3.23 (<5); CREATININE FOR GFR 1.08 MG/DL (0.70-1.30); GLOMERULAR FILTRATION RATE > 60.0 (>49); GLUCOSE, FASTING 96 MG/DL (74-106); HDL CHOLESTEROL 48.2 MG/DL (>40); LDL CHOLESTEROL 82.4 MG/DL (<100); NON-HDL-C 108 MG/DL; POTASSIUM SERUM 4.8 MMOL/L (3.5-5.1); PROSTATIC SPECIFIC AG MONITOR 1.19 NG/ML (< 4.00); SODIUM LEVEL 140 MMOL/L (136-145); TOTAL 25(OH) VITAMIN D 32.7 NG/ML (20.0-100.0); TOTAL PROTEIN 7.2 G/DL (5.7-8.2); TRIGLYCERIDES LEVEL 127 MG/DL (<150)
== END ==
LOC: M WUC 08:53
PROVIDERS: ATTEND Family Medicine
DX: E55.9 Vitamin D deficiency, unspecified (principal); Z12.5 Encounter for screening for malignant neoplasm of prostate; Z79.899 Other long term (current) drug therapy

== ENCOUNTER → 2023-06-26 | Outpatient (REF) | payer MEDICARE, OTHER ==
[2023-06-26 12:45] LABS: BASO % 0.4 % (0.0-1.0); EOS % 0.6 % (0.0-3.0); HEMATOCRIT 45.5 % (42.0-52.0); HEMOGLOBIN 15.1 g/dl (13.5-17.5); LYMPH # 1.3 10^3/uL (1.5-5.0); MEAN CORPUSCULAR HEMOGLOBIN 30.8 pg (27.0-33.0); MEAN CORPUSCULAR HGB CONC 33.2 g/dl (32.0-36.5); MEAN CORPUSCULAR VOLUME 92.9 fl (80.0-96.0); MONO # 0.4 10^3/uL (0.0-0.8); MONO % 8.6 % (2.0-8.0); NEUTROPHILS # 3.3 10^3/uL (1.5-8.5); NEUTROPHILS % 64.4 % (36.0-66.0); PLATELET COUNT, AUTOMATED 184 10^3/uL (150-450); WHITE BLOOD COUNT 5.1 10^3/uL (4.0-10.0)
[2023-06-26 13:01] LABS: ALBUMIN 3.9 G/DL (3.2-5.2); ALKALINE PHOSPHATASE 120 U/L (46-116); ALT/SGPT 33 U/L (7.0-40); AST/SGOT 18 U/L (<34); BILIRUBIN,TOTAL 0.7 MG/DL (0.3-1.2); BLOOD UREA NITROGEN 20 MG/DL (9-23); CALCIUM LEVEL 8.9 MG/DL (8.3-10.6); CARBON DIOXIDE LEVEL 31 MMOL/L (20-31); CHLORIDE LEVEL 104 MMOL/L (98-107); CHOLESTEROL LEVEL 161 MG/DL (<200); CHOLESTEROL RISK RATIO 3.17 (<5); CREATININE FOR GFR 1.02 MG/DL (0.70-1.30); GLOMERULAR FILTRATION RATE > 60.0 (>49); GLUCOSE, FASTING 106 MG/DL (74-106); HDL CHOLESTEROL 50.7 MG/DL (>40); LDL CHOLESTEROL 93.5 MG/DL (<100); NON-HDL-C 110.3 MG/DL; POTASSIUM SERUM 4.9 MMOL/L (3.5-5.1); SODIUM LEVEL 140 MMOL/L (136-145); TOTAL PROTEIN 6.9 G/DL (5.7-8.2); TRIGLYCERIDES LEVEL 84 MG/DL (<150)
[2023-06-26 13:04] LABS: TOTAL 25(OH) VITAMIN D 34.6 NG/ML (20.0-100.0)
== END ==
LOC: M LABWUC 12:11
PROVIDERS: ATTEND Family Medicine
DX: Z00.00 Encounter for general adult medical examination without abnormal findings (principal); E55.9 Vitamin D deficiency, unspecified; Z12.5 Encounter for screening for malignant neoplasm of prostate; Z79.899 Other long term (current) drug therapy
CPT/HCPCS: 36415; 80053; 80061; 82306; 85025; G0103

== ENCOUNTER 2023-10-18 11:09 | Day surgery (SDC) | payer MEDICARE, OTHER ==
[~2023-10-18] VITALS: Ht 162.6 cm; Wt 65.0 kg
[~2023-10-18 11:09] MED LIST changes: +GABA-1171 PO
[2023-10-18] MEDS: NS 1,000 ML IV ONE (11:33)
[2023-10-18] MEDS ORDERED: propofoL 200 MG/20 ML VIAL As Ordered ONE (12:23)
[2023-10-18] MEDS ORDERED: LIDOCAINE 2% MDV 20ML VIAL As Ordered ONE (12:23)
[2023-10-18] MEDS ORDERED: fentaNYL 100 MCG/2 ML INJECTION As Ordered ONE (12:26)
[2023-10-18 12:59] VITALS: TEMP 98.6
[2023-10-18 13:20] VITALS: BP 132/72; O2SAT 99
== END 2023-10-18 13:33 | disposition home or self-care (01) ==
LOC: M OPP 11:09
PROVIDERS: ATTEND Internal Medicine Gastroenterology
DX: Z12.11 Encounter for screening for malignant neoplasm of colon (principal); Z86.010 Personal history of colon polyps; K64.0 First degree hemorrhoids; K57.30 Diverticulosis of large intestine without perforation or abscess without bleeding; K31.89 Other diseases of stomach and duodenum; K22.89 Other specified disease of esophagus; R12 Heartburn; Z87.891 Personal history of nicotine dependence; Z79.02 Long term (current) use of antithrombotics/antiplatelets; Z79.891 Long term (current) use of opiate analgesic; Z88.0 Allergy status to penicillin
CPT/HCPCS: 43239; 88305; G0105; J3010

== ENCOUNTER → 2023-11-13 | Outpatient (CLI) | payer MEDICARE, OTHER ==
[2023-11-13 19:56] LABS: BASO % 0.3 % (0.0-1.0); EOS % 0.5 % (0.0-3.0); HEMATOCRIT 45.1 % (42.0-52.0); HEMOGLOBIN 15.2 g/dl (13.5-17.5); LYMPH # 1.9 10^3/uL (1.5-5.0); LYMPH % 30.5 % (24.0-44.0); MEAN CORPUSCULAR HEMOGLOBIN 30.8 pg (27.0-33.0); MEAN CORPUSCULAR HGB CONC 33.7 g/dl (32.0-36.5); MEAN CORPUSCULAR VOLUME 91.5 fl (80.0-96.0); MONO # 0.7 10^3/uL (0.0-0.8); NEUTROPHILS # 3.5 10^3/uL (1.5-8.5); NEUTROPHILS % 57.5 % (36.0-66.0); PLATELET COUNT, AUTOMATED 196 10^3/uL (150-450); RED BLOOD COUNT 4.93 10^6/uL (4.30-6.10); WHITE BLOOD COUNT 6.2 10^3/uL (4.0-10.0)
[2023-11-13 20:00] LABS: ERYTHROCYTE SEDIMENTATION RATE 14 mm/hr (0-20)
[2023-11-13 20:02] LABS: C REACTIVE PROTEIN QUANTITATIV < 0.40 MG/DL (<1.0)
[2023-11-13 20:04] LABS: ALBUMIN 4.1 G/DL (3.2-5.2); ALKALINE PHOSPHATASE 122 U/L (46-116); ALT/SGPT 38 U/L (7.0-40); AST/SGOT 19 U/L (<34); BILIRUBIN,TOTAL 0.7 MG/DL (0.3-1.2); BLOOD UREA NITROGEN 17 MG/DL (9-23); CALCIUM LEVEL 9.4 MG/DL (8.3-10.6); CARBON DIOXIDE LEVEL 31 MMOL/L (20-31); CHLORIDE LEVEL 103 MMOL/L (98-107); CREATININE FOR GFR 1.03 MG/DL (0.70-1.30); GLOMERULAR FILTRATION RATE > 60.0 (>42); GLUCOSE, FASTING 89 MG/DL (74-106); POTASSIUM SERUM 4.6 MMOL/L (3.5-5.1); SODIUM LEVEL 140 MMOL/L (136-145); TOTAL PROTEIN 7.1 G/DL (5.7-8.2)
[2023-11-13 20:06] LABS: THYROID STIMULATING HORMONE 5.763 uIU/ML (0.55-4.78)
== END ==
LOC: M WUC 15:12
PROVIDERS: ATTEND Family Medicine
DX: R53.81 Other malaise (principal); R06.02 Shortness of breath

== ENCOUNTER → 2024-01-03 | Outpatient (REF) | payer MEDICARE, OTHER ==
[2024-01-03 18:10] LABS: FREE T4 0.89 NG/DL (0.89-1.76); THYROID STIMULATING HORMONE 3.796 uIU/ML (0.55-4.78)
== END ==
LOC: M LABWUC 17:19
PROVIDERS: ATTEND Family Medicine
DX: E07.9 Disorder of thyroid, unspecified (principal)

== ENCOUNTER → 2024-06-24 | Outpatient (CLI) | payer MEDICARE, OTHER ==
[2024-06-24 10:19] LABS: BASO % 0.4 % (0.0-1.0); EOS % 0.8 % (0.0-3.0); HEMATOCRIT 46.7 % (42.0-52.0); HEMOGLOBIN 15.4 g/dl (13.5-17.5); LYMPH # 1.4 10^3/uL (1.5-5.0); LYMPH % 28.5 % (24.0-44.0); MEAN CORPUSCULAR HEMOGLOBIN 30.9 pg (27.0-33.0); MEAN CORPUSCULAR VOLUME 93.6 fl (80.0-96.0); MONO # 0.6 10^3/uL (0.0-0.8); NEUTROPHILS # 2.9 10^3/uL (1.5-8.5); NEUTROPHILS % 57.9 % (36.0-66.0); PLATELET COUNT, AUTOMATED 184 10^3/uL (150-450); RED BLOOD COUNT 4.99 10^6/uL (4.30-6.10); WHITE BLOOD COUNT 4.9 10^3/uL (4.0-10.0)
[2024-06-24 10:44] LABS: ALBUMIN 3.9 G/DL (3.2-5.2); ALKALINE PHOSPHATASE 119 U/L (40-129); ALT/SGPT 26 U/L (7.0-40); AST/SGOT 12 U/L (<34); BILIRUBIN,TOTAL 0.6 MG/DL (0.3-1.2); BLOOD UREA NITROGEN 16 MG/DL (9-23); CALCIUM LEVEL 9.8 MG/DL (8.3-10.6); CARBON DIOXIDE LEVEL 32 MMOL/L (20-31); CHLORIDE LEVEL 108 MMOL/L (98-107); CHOLESTEROL LEVEL 168 MG/DL (<200); CHOLESTEROL RISK RATIO 3.45 (<5); CREATININE FOR GFR 1.13 MG/DL (0.70-1.30); GLOMERULAR FILTRATION RATE > 60.0 (>42); GLUCOSE, FASTING 99 MG/DL (74-106); HDL CHOLESTEROL 48.6 MG/DL (>40); LDL CHOLESTEROL 95.4 MG/DL (<100); NON-HDL-C 119.4 MG/DL; POTASSIUM SERUM 5.7 MMOL/L (3.5-5.1); SODIUM LEVEL 142 MMOL/L (136-145); TRIGLYCERIDES LEVEL 120 MG/DL (<150)
== END ==
LOC: M WUC 08:45
PROVIDERS: ATTEND Family Medicine
DX: Z00.00 Encounter for general adult medical examination without abnormal findings (principal); E55.9 Vitamin D deficiency, unspecified; E78.00 Pure hypercholesterolemia, unspecified

== ENCOUNTER → 2024-07-09 | Outpatient (CLI) | payer MEDICARE, OTHER ==
[2024-07-09 10:54] LABS: BLOOD UREA NITROGEN 15 MG/DL (9-23); CALCIUM LEVEL 9.3 MG/DL (8.3-10.6); CARBON DIOXIDE LEVEL 32 MMOL/L (20-31); CHLORIDE LEVEL 103 MMOL/L (98-107); CREATININE FOR GFR 1.09 MG/DL (0.70-1.30); GLOMERULAR FILTRATION RATE > 60.0 (>42); GLUCOSE, FASTING 89 MG/DL (74-106); POTASSIUM SERUM 4.6 MMOL/L (3.5-5.1); SODIUM LEVEL 140 MMOL/L (136-145)
== END ==
LOC: M WUC 08:34
PROVIDERS: ATTEND Family Medicine
DX: E87.5 Hyperkalemia (principal)

== ENCOUNTER → 2024-09-23 | Outpatient (CLI) | payer MEDICARE, OTHER ==
[2024-09-23 13:08] LABS: RSV AMPLIFICATION NEGATIVE (NEGATIVE)
== END ==
LOC: M WUC 09:58
PROVIDERS: ATTEND Internal Medicine
DX: R05.1 Acute cough (principal); R09.81 Nasal congestion; R50.9 Fever, unspecified

== ENCOUNTER 2024-11-08 10:47 | Emergency (ER) | payer MEDICARE, OTHER ==
[~2024-11-08] VITALS: Ht 162.6 cm; Wt 65.9 kg
[2024-11-08] MEDS ORDERED: CODE30TA PO (13:49)
[2024-11-08 14:33] VITALS: BP 135/65; TEMP 98.5; O2SAT 95
== END 2024-11-08 14:34 | disposition home or self-care (01) ==
LOC: M ED 10:47 → EDBD 10:47 → M ED 14:34
DX: S22.41XA Multiple fractures of ribs, right side, initial encounter for closed fracture (principal); Y92.019 Unspecified place in single-family (private) house as the place of occurrence of the external cause; Y93.9 Activity, unspecified; Y99.9 Unspecified external cause status; W00.0XXA Fall on same level due to ice and snow, initial encounter; K21.9 Gastro-esophageal reflux disease without esophagitis; E78.5 Hyperlipidemia, unspecified; F32.A Depression, unspecified; Z88.0 Allergy status to penicillin; Z79.1 Long term (current) use of non-steroidal anti-inflammatories (NSAID); Z79.899 Other long term (current) drug therapy

== ENCOUNTER 2024-11-11 09:31 | Emergency (ER) | payer MEDICARE, OTHER ==
[~2024-11-11] VITALS: Ht 162.6 cm; Wt 65.7 kg
[~2024-11-11 09:31] MED LIST changes: +CODE30TA PO
[2024-11-11 09:34] VITALS: BP 140/69; TEMP 96.6; O2SAT 99
[2024-11-11] MEDS ORDERED: ACE65ERTAB PO (09:38)
== END 2024-11-11 13:36 | disposition left against medical advice (07) ==
LOC: M ED 09:31
DX: Z53.21 Procedure and treatment not carried out due to patient leaving prior to being seen by health care provider (principal)